=== PATIENT | male | born 1965 | race Caucasian/White ===

== ENCOUNTER 2016-12-19 09:45 | Emergency (ER) | payer BC ==
[~2016-12-19] VITALS: Ht 177.8 cm; Wt 93.8 kg
[2016-12-19 09:45] VITALS: BP 219/118
[2016-12-19] MEDS ORDERED: CLEO300C2 PO (10:13)
[2016-12-19] MEDS ORDERED: HYDR-3713 PO (10:13)
== END 2016-12-19 10:19 | disposition home or self-care (01) ==
LOC: M ED 09:45
DX: K04.7 Periapical abscess without sinus (principal); K08.89 Other specified disorders of teeth and supporting structures; I10 Essential (primary) hypertension; F17.200 Nicotine dependence, unspecified, uncomplicated; Z88.0 Allergy status to penicillin

== ENCOUNTER → 2018-06-05 | Outpatient (REF) | payer BC ==
[~2018-06-05] MED LIST: CLEO300C2 PO; HYDR-3713 PO
[2018-06-05 12:33] LABS: BLOOD UREA NITROGEN 13 MG/DL (7-18); CALCIUM LEVEL 9.4 MG/DL (8.5-10.1); CARBON DIOXIDE LEVEL 31 MEQ/L (21-32); CHLORIDE LEVEL 99 MEQ/L (98-107); CREATININE FOR GFR 0.74 MG/DL (0.70-1.30); GLOMERULAR FILTRATION RATE > 60.0 (>56); GLUCOSE, FASTING 295 MG/DL (70-100); POTASSIUM SERUM 4.2 MEQ/L (3.5-5.1); SODIUM LEVEL 135 MEQ/L (136-145); TROPONIN I < 0.02 NG/ML (< 0.10)
[2018-06-05 12:43] LABS: HEMOGLOBIN A1c 11.8 %
[2018-06-05 12:52] LABS: CREATININE, URINE 85.9 MG/DL; MALB URINE SIEMENS 68.1 MG/L; MAU/CREAT RATIO 79.2 MCG/MG (0.0-30.0)
== END ==
LOC: M SFHCPLAZ 10:32
PROVIDERS: ATTEND Family Medicine
DX: Z13.1 Encounter for screening for diabetes mellitus (principal); I16.0 Hypertensive urgency; Z23 Encounter for immunization

== ENCOUNTER → 2018-06-12 | Outpatient (REF) | payer BC ==
[2018-06-12 11:42] LABS: CHOLESTEROL RISK RATIO 6.645 (<5)
== END ==
LOC: M SFHCPLAZ 07:49
PROVIDERS: ATTEND Family Medicine
DX: I16.0 Hypertensive urgency (principal); Z13.220 Encounter for screening for lipoid disorders

== ENCOUNTER → 2018-09-18 | Outpatient (CLI) | payer BC ==
[2018-09-18 08:03] LABS: HEMOGLOBIN A1c 8.4 %
[2018-09-18 08:05] LABS: BLOOD UREA NITROGEN 16 MG/DL (7-18); CALCIUM LEVEL 8.8 MG/DL (8.5-10.1); CARBON DIOXIDE LEVEL 31 MEQ/L (21-32); CHLORIDE LEVEL 103 MEQ/L (98-107); CREATININE FOR GFR 0.85 MG/DL (0.70-1.30); GLOMERULAR FILTRATION RATE > 60.0 (>56); GLUCOSE, FASTING 172 MG/DL (70-100); POTASSIUM SERUM 3.7 MEQ/L (3.5-5.1); SODIUM LEVEL 140 MEQ/L (136-145)
[2018-09-18 08:24] LABS: MAU/CREAT RATIO 33.2 MCG/MG (0.0-30.0)
== END ==
LOC: M LAB 07:05
PROVIDERS: ATTEND Family Medicine
DX: E11.65 Type 2 diabetes mellitus with hyperglycemia (principal)

== ENCOUNTER → 2019-01-22 | Outpatient (REF) | payer BC ==
[2019-01-22 10:30] LABS: BLOOD UREA NITROGEN 13 MG/DL (7-18); CALCIUM LEVEL 9.1 MG/DL (8.5-10.1); CARBON DIOXIDE LEVEL 31 MEQ/L (21-32); CHLORIDE LEVEL 101 MEQ/L (98-107); CREATININE FOR GFR 0.89 MG/DL (0.70-1.30); GLOMERULAR FILTRATION RATE > 60.0 (>56); GLUCOSE, FASTING 165 MG/DL (70-100); SODIUM LEVEL 139 MEQ/L (136-145); TROPONIN I < 0.02 NG/ML (< 0.10)
[2019-01-22 10:43] LABS: MALB URINE SIEMENS 17.3 MG/L; MAU/CREAT RATIO 16.6 MCG/MG (0.0-30.0)
== END ==
LOC: M SFHCPLAZ 08:46
PROVIDERS: ATTEND Family Medicine
DX: I16.0 Hypertensive urgency (principal)

== ENCOUNTER → 2020-01-15 | Outpatient (CLI) | payer BC ==
[2020-01-15 11:48] LABS: CREATININE, URINE 49.6 MG/DL; MALB URINE SIEMENS 30.6 MG/L; MAU/CREAT RATIO 61.6 MCG/MG (0.0-30.0)
[2020-01-15 12:00] LABS: ALBUMIN 3.6 GM/DL (3.2-5.2); ALT/SGPT 21 U/L (12-78); BILIRUBIN,TOTAL 0.4 MG/DL (0.2-1.0); BLOOD UREA NITROGEN 10 MG/DL (7-18); CARBON DIOXIDE LEVEL 28 MEQ/L (21-32); CHLORIDE LEVEL 103 MEQ/L (98-107); CHOLESTEROL LEVEL 218 MG/DL (<200); CHOLESTEROL RISK RATIO 6.228 (<5); CREATININE FOR GFR 0.82 MG/DL (0.70-1.30); GLOMERULAR FILTRATION RATE > 60.0 (>56); GLUCOSE, FASTING 342 MG/DL (70-100); HDL CHOLESTEROL 35 MG/DL (>40); LDL CHOLESTEROL 128 MG/DL (<100); NON-HDL-C 183 MG/DL; POTASSIUM SERUM 4.6 MEQ/L (3.5-5.1); SODIUM LEVEL 135 MEQ/L (136-145); TRIGLYCERIDES LEVEL 274 MG/DL (<150)
[2020-01-15 12:29] LABS: HEMOGLOBIN A1c 11.2 %
== END ==
LOC: M PLALAB 08:08
PROVIDERS: ATTEND Nurse Practitioner Adult Health
DX: E11.65 Type 2 diabetes mellitus with hyperglycemia (principal); Z13.29 Encounter for screening for other suspected endocrine disorder; I10 Essential (primary) hypertension; E78.2 Mixed hyperlipidemia

== ENCOUNTER 2020-10-07 10:56 | Observation (INO) | payer BC ==
[~2020-10-07] VITALS: Ht 177.8 cm; Wt 78.7 kg
[2020-10-07] MEDS ORDERED: SILD100T PO (11:20)
[2020-10-07] MEDS ORDERED: IRBE150T7 PO (11:20)
[2020-10-07] MEDS ORDERED: GLIP10TA18 PO (11:20)
--- NOTE | 2020-10-07 11:51 | REP ---
INDICATION: Syncope/near-syncope. COMPARISON: No comparison chest x-ray. TECHNIQUE: Portable upright AP chest radiograph. FINDINGS: The lungs are well inflated and free of infiltrate. Pleural angles are sharp. Heart size is normal. Pulmonary vasculature is not increased. EKG monitoring electrodes are seen. In addition, head phone wires are seen overlying the chest. IMPRESSION: No active disease. <Electronically signed by Dwain Wilson > 10/07/20 [id number]
[2020-10-07 12:04] LABS: BASO % 0.4 % (0.0-1.0); EOS # 0.1 10^3/uL (0.0-0.5); EOS % 0.7 % (0.0-3.0); HEMATOCRIT 46.3 % (42.0-52.0); HEMOGLOBIN 16.3 g/dl (13.5-17.5); LYMPH # 1.8 10^3/uL (1.5-5.0); LYMPH % 17.7 % (24.0-44.0); MEAN CORPUSCULAR HEMOGLOBIN 30.8 pg (27.0-33.0); MEAN CORPUSCULAR HGB CONC 35.2 g/dl (32.0-36.5); MEAN CORPUSCULAR VOLUME 87.5 fl (80.0-96.0); MONO # 0.6 10^3/uL (0.0-0.8); MONO % 6.2 % (2.0-8.0); NEUTROPHILS # 7.5 10^3/uL (1.5-8.5); NEUTROPHILS % 74.5 % (36.0-66.0); PLATELET COUNT, AUTOMATED 258 10^3/uL (150-450); RED BLOOD COUNT 5.29 10^6/uL (4.30-6.10)
[2020-10-07 12:50] LABS: BLOOD UREA NITROGEN 8 MG/DL (7-18); CALCIUM LEVEL 8.7 MG/DL (8.5-10.1); CARBON DIOXIDE LEVEL 27 MEQ/L (21-32); CHLORIDE LEVEL 104 MEQ/L (98-107); CREATININE FOR GFR 0.68 MG/DL (0.70-1.30); GLOMERULAR FILTRATION RATE > 60.0 (>56); GLUCOSE, FASTING 256 MG/DL (70-100); MAGNESIUM LEVEL 1.8 MG/DL (1.8-2.4); POTASSIUM SERUM 3.7 MEQ/L (3.5-5.1); SODIUM LEVEL 138 MEQ/L (136-145)
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
[2020-10-07] MEDS ORDERED: GLUCOSE 4GM CHEW TABLET PO PRN (14:00)
[2020-10-07] MEDS ORDERED: DEXTROSE 50% 50 ML SYRINGE IV PRN (14:00)
[2020-10-07] MEDS ORDERED: GLUCAGON INJ 1MG VIAL SC PRN (14:00)
[2020-10-07 15:03] LABS: RSV AMPLIFICATION NEGATIVE (NEGATIVE)
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
[2020-10-07] MEDS ORDERED: IRBESARTAN 150MG TAB PO ONE (16:35)
[2020-10-07] MEDS ORDERED: NS 1,000 ML IV ONE (16:35)
[2020-10-07 16:50] VITALS: BP 177/90
[2020-10-07] MEDS: HumaLOG INSULIN (NovoLOG) PER UNIT SC SCH (17:30)
[2020-10-07 17:40] LABS: HEMOGLOBIN A1c 7.2 %
[2020-10-07] MEDS ORDERED: SLF 3 ML SYR IV PRN (17:50)
[2020-10-07 17:53] LABS: CK-MB VALUE MASS < 1.0 NG/ML (<3.6); CPK CREATINE PHOSPHOKINASE 81 U/L (39-308); MB/CK RELATIVE INDEX 1.23 (< OR =4); TROPONIN I < 0.02 NG/ML (< 0.10)
[2020-10-07 20:00] VITALS: BP 170/100
[2020-10-07] MEDS ORDERED: hydrALAZINE 20MG/ML 1ML VIAL (J0360 PER 20MG) IV ONE (20:40)
[2020-10-07] MEDS ORDERED: HumaLOG INSULIN (NovoLOG) PER UNIT SC SCH (21:00)
[2020-10-07 21:49] VITALS: BP 154/90
[2020-10-07] MEDS: SLF 3 ML SYR IV SCH (21:55)
[2020-10-08] VITALS: BP 160/98
[2020-10-08 04:00] VITALS: BP_SYST 136; BP_SYST 165; BP_SYST 167; BP_DIAS 85; BP_DIAS 92; BP_DIAS 93
[2020-10-08 05:45] LABS: BASO # 0.1 10^3/uL (0.0-0.2); BASO % 0.8 % (0.0-1.0); EOS # 0.3 10^3/uL (0.0-0.5); EOS % 3.3 % (0.0-3.0); HEMATOCRIT 46.4 % (42.0-52.0); HEMOGLOBIN 15.6 g/dl (13.5-17.5); LYMPH # 2.3 10^3/uL (1.5-5.0); LYMPH % 26.6 % (24.0-44.0); MEAN CORPUSCULAR HEMOGLOBIN 30.2 pg (27.0-33.0); MEAN CORPUSCULAR HGB CONC 33.6 g/dl (32.0-36.5); MEAN CORPUSCULAR VOLUME 89.7 fl (80.0-96.0); MONO # 0.7 10^3/uL (0.0-0.8); MONO % 7.5 % (2.0-8.0); NEUTROPHILS # 5.4 10^3/uL (1.5-8.5); NEUTROPHILS % 61.6 % (36.0-66.0); PLATELET COUNT, AUTOMATED 240 10^3/uL (150-450); RED BLOOD COUNT 5.17 10^6/uL (4.30-6.10); WHITE BLOOD COUNT 8.8 10^3/uL (4.0-10.0)
[2020-10-08 06:06] LABS: BLOOD UREA NITROGEN 12 MG/DL (7-18); CALCIUM LEVEL 8.4 MG/DL (8.5-10.1); CARBON DIOXIDE LEVEL 26 MEQ/L (21-32); CHLORIDE LEVEL 108 MEQ/L (98-107); CHOLESTEROL LEVEL 185 MG/DL (<200); CHOLESTEROL RISK RATIO 6.607 (<5); CREATININE FOR GFR 0.71 MG/DL (0.70-1.30); GLOMERULAR FILTRATION RATE > 60.0 (>56); GLUCOSE, FASTING 239 MG/DL (70-100); HDL CHOLESTEROL 28 MG/DL (>40); LDL CHOLESTEROL 118 MG/DL (<100); NON-HDL-C 157 MG/DL; POTASSIUM SERUM 4.1 MEQ/L (3.5-5.1); SODIUM LEVEL 139 MEQ/L (136-145); TRIGLYCERIDES LEVEL 195 MG/DL (<150)
[2020-10-08] MEDS: SLF 3 ML SYR IV SCH (06:21)
--- NOTE | 2020-10-08 07:17 | ECGEPIP ---
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
[2020-10-08] MEDS ORDERED: glipiZIDE XL 5 MG TABCR PO SCH (07:30)
[2020-10-08] MEDS: HumaLOG INSULIN (NovoLOG) PER UNIT SC SCH (07:30)
[2020-10-08 08:00] VITALS: BP 160/90
[2020-10-08 08:31] VITALS: BP 167/93
[2020-10-08] MEDS ORDERED: amLODIPine 5 MG TAB PO SCH (09:00)
[2020-10-08] MEDS ORDERED: ENOXAPARIN 40MG/0.4ML SYRINGE (J1650 PER 10MG) SC SCH (09:00)
[2020-10-08] MEDS ORDERED: IRBESARTAN 150MG TAB PO SCH (09:00)
[2020-10-08] MEDS ORDERED: GLIP10TA18 PO (10:35)
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
--- NOTE | 2020-10-08 21:59 | ECHO ---
ECHOCARDIOGRAM DATE OF PROCEDURE: 10/07/2020 Age: 55 Gender: Male Height: 178 cm Weight: 79 kg REFERRING PHYSICIAN: Dr. Deisi Briggs INDICATION: Dizziness, syncope MEASUREMENTS: 2D Measurements: Aortic root 3.4 cm Left atrium 3.1 cm Left ventricle 3.7 cm Intraventricular septum 1.42 cm Posterior wall 1.43 cm Aortic annulus 2.3 cm Right ventricle 3.3 cm Inferior vena cava 1.4 cm (normal respiratory variation) Doppler Measurements: No aortic stenosis No aortic regurgitation Aortic valve velocity 156 cm/s LVOT velocity 78.3 cm/s No mitral regurgitation No mitral stenosis Mitral E velocity 81.0 cm/s Mitral A velocity 98.5 cm/s Mitral deceleration time 195 m/sec No tricuspid regurgitation No pulmonic regurgitation Pulmonary acceleration time 161 m/sec MITRAL ANNULAR TISSUE DOPPLER E prime septal 6.5 cm/s, E prime lateral 9.4 cm/s DESCRIPTION: Rhythm was sinus. Image quality was good. This was a 2D, M-mode, color flow Doppler, and pulsed wave Doppler examination including mitral annular tissue Doppler. CONCLUSIONS: 1. Mild concentric left ventricle hypertrophy. Normal regional LV wall motion and wall thickening. Normal LV systolic function. LVEF 60% by visual estimate. Normal peak systolic strain pattern. Grade 1 LV diastolic dysfunction (impaired relaxation filling pattern). 2. Mild aortic valve sclerosis of a 3-cuspid aortic valve. No aortic regurgitation. 3. Normal right ventricle size. Visual appearance of mild right ventricular hypertrophy. Normal LV systolic function. Suggestive of normal pulmonary artery systolic pressure and estimated right ventricular systolic pressure. Normal CVP. 4. No pericardial effusion. MTDD
== END 2020-10-08 12:38 | disposition home or self-care (01) ==
LOC: M ED 10:56 → EDBD 10:56 → M ED INP 14:00 → ENRESERV 14:21 → M PCU 16:45
PROVIDERS: ADMIT Internal Medicine Nephrology; ATTEND Internal Medicine Nephrology
DX: R55 Syncope and collapse (principal); I10 Essential (primary) hypertension; E11.9 Type 2 diabetes mellitus without complications; E78.49 Other hyperlipidemia; F17.218 Nicotine dependence, cigarettes, with other nicotine-induced disorders; N52.9 Male erectile dysfunction, unspecified; Z79.84 Long term (current) use of oral hypoglycemic drugs; Z79.899 Other long term (current) drug therapy; Z88.0 Allergy status to penicillin

== ENCOUNTER → 2021-02-08 | Outpatient (CLI) | payer BC ==
[~2021-02-08] MED LIST changes: +GLIP10TA18 PO; +IRBE150T7 PO; +SILD100T PO
[2021-02-08 10:57] LABS: HEMOGLOBIN A1c 9.8 %
[2021-02-08 11:07] LABS: CREATININE, URINE 56.9 MG/DL; MALB URINE SIEMENS 28.6 MG/L; MAU/CREAT RATIO 50.2 MCG/MG (0.0-30.0)
[2021-02-08 11:22] LABS: ALBUMIN 3.4 GM/DL (3.2-5.2); ALT/SGPT 18 U/L (12-78); BILIRUBIN,TOTAL 0.4 MG/DL (0.2-1.0); BLOOD UREA NITROGEN 11 MG/DL (7-18); CALCIUM LEVEL 8.9 MG/DL (8.5-10.1); CARBON DIOXIDE LEVEL 28 MEQ/L (21-32); CHLORIDE LEVEL 106 MEQ/L (98-107); CHOLESTEROL LEVEL 181 MG/DL (<200); CHOLESTEROL RISK RATIO 4.763 (<5); CREATININE FOR GFR 0.88 MG/DL (0.70-1.30); GLOMERULAR FILTRATION RATE > 60.0 (>56); GLUCOSE, FASTING 177 MG/DL (70-100); HDL CHOLESTEROL 38 MG/DL (>40); LDL CHOLESTEROL 121 MG/DL (<100); NON-HDL-C 143 MG/DL; POTASSIUM SERUM 4.3 MEQ/L (3.5-5.1); SODIUM LEVEL 138 MEQ/L (136-145); TOTAL PROTEIN 6.8 GM/DL (6.4-8.2); TRIGLYCERIDES LEVEL 112 MG/DL (<150)
== END ==
LOC: M PLALAB 08:36
PROVIDERS: ATTEND Nurse Practitioner Adult Health
DX: E11.65 Type 2 diabetes mellitus with hyperglycemia (principal); I10 Essential (primary) hypertension; E78.2 Mixed hyperlipidemia